=== PATIENT | male | born 1945 | race Caucasian/White ===

== ENCOUNTER → 2017-02-15 | Outpatient (CLI) | payer MEDICARE ==
--- NOTE | 2017-02-15 13:53 | RADIOLOGY REPORT PS360 ---
WRIST-3 VIEWS-LT HISTORY: LT WRIST PAIN ORDERING PHYSICIAN: Nikole Simpson MD PATIENT AGE: 71 years COMPARISON: None FINDINGS: Mild osteoarthritic changes are present at the scaphotrapezium and scaphotrapezoid junction. No fracture or dislocation. No lytic or blastic change. 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
== END ==
LOC: RAD 12:41
DX: M25.532 Pain in left wrist (principal)